=== PATIENT | male | born 1995 | race Caucasian/White ===

== ENCOUNTER 2017-07-13 01:24 | Emergency (ER) | payer MEDICAID ==
[~2017-07-13] VITALS: Ht 182.9 cm; Wt 95.3 kg
[2017-07-13 01:37] VITALS: BP 0/0
== END 2017-07-13 04:53 | disposition expired ==
LOC: ER 01:24
DX: S21.131A Puncture wound without foreign body of right front wall of thorax without penetration into thoracic cavity, initial encounter (principal); T79.7XXA Traumatic subcutaneous emphysema, initial encounter; I46.9 Cardiac arrest, cause unspecified; W34.00XA Accidental discharge from unspecified firearms or gun, initial encounter; Y93.89 Activity, other specified; Y92.89 Other specified places as the place of occurrence of the external cause; Y99.8 Other external cause status